=== PATIENT | male | born 1970 | race Caucasian/White ===

== ENCOUNTER 2020-01-06 16:42 | Emergency (ER) | payer OTHER, SELFPAY ==
[2020-01-06 16:50] VITALS: BP 155/80; PULSE 74; RESP 16; TEMP 36.9; O2SAT 99
--- NOTE | 2020-01-06 17:04 | ED.WOUNDLAC ---
HPI - Wound/Laceration General Chief Complaint: Extremity Injury, Upper Stated Complaint: cut to left middle finger Time Seen by Provider: 01/06/20 17:04 Source: patient History of Present Illness HPI narrative: Patient was at work yesterday and caught his left middle finger over the knuckle on a wire copper cable causing a laceration to the finger. Patient cleaned the finger at work and applied tape. Patient presents today for a tetanus shot. Patient denies any numbness or tingling normal range of motion to the finger. Discussed with patient unable to repair wound due to injury being over [address]: work Patient tetanus UTD: No Context: accidental Associated symptoms: none Treatments prior to arrival: bandage and splint Related Data Allergies Allergy/AdvReac Type Severity Reaction Status Date / Time No Known Allergies Allergy Verified 01/06/20 17:10 Review of Systems Review of Systems: Narrative: CONSTITUTIONAL: Denies fever, chills, or sweats. EYES: Denies visual changes, redness, or discharge. ENT: Denies rhinorrhea, congestion, sore throat, or otalgia. CARDIOVASCULAR: Denies chest pain, palpitations, or edema. RESPIRATORY: Denies cough or dyspnea. GASTROINTESTINAL: Denies abdominal pain, nausea, vomiting, or diarrhea. GENITOURINARY: Denies dysuria or hematuria. SKIN: Denies rash or itching. 24-hour old laceration to left middle finger over the knuckle MUSCULOSKELETAL: Denies back pain, joint pain, or myalgia. NEUROLOGIC: Denies headache, numbness, or weakness. PSYCHIATRIC: Denies anxiety or depression. PMFSH Comments At time of signature, agree with nursing past medical, surgical, social and family history. There is no relevant family history pertinent to the presenting complaint Exam Narrative: Exam Narrative: GENERAL: Well-appearing, well-nourished, and in no acute distress. HEAD: Normocephalic, atraumatic. EYES: PERRLA and EOMI. ENT: Nares clear, no rhinorrhea or epistaxis. Mucous membranes moist. NECK: Supple. CHEST: Clear to auscultation. No respiratory distress. HEART: Regular rate and rhythm. No murmur heard. Normal peripheral pulses. ABDOMEN: Soft, nontender, nondistended, normal active bowel sounds. EXTREMITIES: Normal range of motion. No edema. HAND EXAM - Skin intact, 3 cm laceration over knuckle of left middle finger., no swelling, no erythema, normal digit cascade with flexion of fingers, median nerve, ulnar nerve, radial nerve is intact. Normal sensation of each side of each finger, can perform `ok? sign, `cross over finger test of index and middle fingers? and `thumbs up? sign, normal thumb opposition, no scissoring. good capillary refill and radial pulse. normal flexion and extension of fingers and wrist. normal supination at wrist. Normal forearm and elbow exam. SKIN: Warm, dry, no rash. NEURO: No focal deficits. Alert and oriented x3. [place] Coma Scale Eye Opening: Spontaneous 4 [place] Coma Scale Motor: Obeys Commands 6 [place] Coma Scale Verbal: Oriented 5 [place] Coma Scale Total 15 Course Vital Signs Vital signs: Vital Signs Temperature 36.9 C 01/06/20 16:50 Pulse Rate 74 01/06/20 16:50 Respiratory Rate 16 01/06/20 16:50 Blood Pressure 155/80 H 01/06/20 16:50 Pulse Oximetry 99 01/06/20 16:50 Temperature 36.9 C 01/06/20 16:50 Pulse Rate 74 01/06/20 16:50 Respiratory Rate 16 01/06/20 16:50 Blood Pressure 155/80 H 01/06/20 16:50 Pulse Oximetry 99 01/06/20 16:50 Please CYNTHIA schedule a followup visit with your personal physician for further evaluation and treatment. Including recheck and discussion of your blood pressure. If your symptoms persist, change or worsen significantly before you can contact your personal physician then please, without delay, go to the emergency department for further evaluation Procedures Laceration Laceration 1: Date: 01/06/20 Time: 17:10 Site: other (left middle finger over knuckle) Side
[2020-01-06] MEDS: TETANUS,DIPHTHERIA,AC PERTUSSIS ADULT (0.5 ML) BOOSTRIX IM (17:20)
== END 2020-01-06 17:40 | disposition home or self-care (01) ==
PROVIDERS: Emergency Provider Nurse Practitioner Family
DX: S61.213A Laceration without foreign body of left middle finger without damage to nail, initial encounter (principal); W22.8XXA Striking against or struck by other objects, initial encounter; Z23 Encounter for immunization
CPT/HCPCS: 90471; 90715; 99213; G0463

== ENCOUNTER 2022-08-20 10:42 | Emergency (ER) | payer BC, SELFPAY ==
--- NOTE | ~2022-08-20 | XR_ITS ---
EXAMINATION: XR knee RT min 4V DATE: 08/20/2022 11:21 INDICATION: Right knee injury and pain and swelling. TECHNIQUE: 4 views of right knee were obtained. COMPARISON: None. FINDINGS: Bone alignment is normal. No fracture. There is mild osteoarthritis of medial and lateral c ompartments and moderate osteoarthritis of patellofemoral compartment. No knee joint effusion. IMPRESSION: 1. Moderate right knee osteoarthritis. Reviewed, dictated and finalized at location A.
[2022-08-20 10:46] VITALS: BP 164/86; PULSE 78; RESP 16; TEMP 37.1; O2SAT 98
--- NOTE | 2022-08-20 10:56 | ED.EXTPRO ---
HPI - Extremity Problem General Chief complaint: Extremity Problem,Nontraumatic Stated complaint: R knee injury Time Seen by Provider: 08/20/22 10:54 Source: patient Mode of arrival: ambulatory Limitations: no limitations History of Present Illness HPI Narrative: 52-YEAR-OLD WHITE MALE WAS WALKING DOWN some steps at home and felt a pop as he was moving his right leg from 1 step to the next. The pop recurred while it was not touching either step and all his weight was on his left foot. He reports the pop felt like it was in the back of his right knee, and since that time has been very painful, swelled quickly, he can straighten it all the way and he can not bend it all the way he has to leave it in a flexed position. there was no impact involved. He denies any specific single bad knee injury, however he reports there had been some wear and tear and he had arthroscopic surgery 1 time previously to clean up the cartilage and smooth it out he has a history of hypertension, takes losartan, does not take any blood thinners. He denies any numbness, tingling, loss of strength in that extremity, denies any recent fever chills, sinus drainage, sore throat, coughing, chest pain, palpitations, near-syncope or syncope. Denies abdominal pain, nausea vomiting, diarrhea constipation, dysuria urgency or frequency Related Data Home Medications Medication Instructions Recorded Confirmed losartan 100 mg tablet 100 mg PO DAILY 08/20/22 08/20/22 Allergies Allergy/AdvReac Type Severity Reaction Status Date / Time No Known Allergies Allergy Verified 08/20/22 10:45 Review of Systems Review of Systems: All systems reviewed & are unremarkable except as noted in HPI and below (hpi) Exam Const: General: healthy appearing Nutritional Appearance: obese Orientation/consciousness: patient oriented x3 Limitations: no limitations HENMT: Head: normal to inspection Face/Nose/Sinus: Normal external nose present Face and sinus: normal facial exam Eyes: Conjunctivae: conjunctivae normal Pupils: Equal, round and reactive pupils present EOM: EOMs intact bilaterally Neck: Neck: normal visual inspection Resp: Effort & Inspection: normal respiratory effort Cardio: Rate: regular rate Rhythm: regular rhythm Skin: General skin exam: normal color Neuro: General: patient oriented x3 Cranial nerves: Yes Nystagmus not present Speech: normal speech Other: unable to bear weight R leg Extrem: General: normal to inspection Other: except on exam of right knee, he is holding the right leg flexed at about 30? at the knee there is obvious significant swelling and on exam there is a large joint effusion present, with tenderness on palpation laterally, superiorly, medially, and posteriorly. The actual medial collateral and lateral collateral ligaments are nontender to palpation. Pain is marked on any flexion or extension so was unable to get a good exam regarding drawer sign, or varus or valgus stressing. Distal neurovascular is intact Psych: Mental Status: mental status grossly normal Affect: normal affect Attitude: cooperative Course Course Emergency Course: differential diagnosis in this gentleman who injured his knee while walking down steps, which occurred actually in between the steps when he was not having any load bearing, includes but is not limited to cartilage tear, joint effusion, ligamentous injury, fracture -unlikely, and proceed with getting a four view x-ray. My exam currently is limited by the swelling and the pain he has on exam, unable to get a good cruciate or good collateral ligamentous exam. X-ray reveals significant osteoarthritis, spurring, and by x-ray radiologist is reading it is no joint effusion although on my exam he has a ballotable effusion. There is no obvious fracture. Will need to treat him with a knee stabilizer, he is most comfortable with it the day flexed at 30 degree position, will maintain that, have
[2022-08-20 12:13] VITALS: BP 151/86; PULSE 65; RESP 18; TEMP 37.1; O2SAT 98
== END 2022-08-20 12:15 | disposition home or self-care (01) ==
PROVIDERS: Emergency Provider Emergency Medicine
DX: S89.91XA Unspecified injury of right lower leg, initial encounter (principal); X50.0XXA Overexertion from strenuous movement or load, initial encounter
CPT/HCPCS: 73564; 99283; L1830